=== PATIENT | female | born 1970 | race Asian ===

== ENCOUNTER 2021-03-11 07:29 | Emergency (ER) | payer OTHER ==
[~2021-03-11] VITALS: Ht 160 cm; Wt 71.2 kg
[2021-03-11 08:00] LABS: PLATELET COUNT 236 K/uL (152-353)
[2021-03-11 08:10] LABS: POTASSIUM 3.8 mmol/L (3.6-5.2); SODIUM 128 mmol/L (136-145)
[2021-03-11 08:18] LABS: PARTIAL THROMBOPLASTIN TIME 27.9 SECONDS (24.5-33.6)
[2021-03-11 11:30] VITALS: BP 128/89; TEMP 98
== END 2021-03-11 11:30 | disposition home or self-care (01) ==
LOC: ED 07:29
PROVIDERS: Hospitalist
DX: R07.89 Other chest pain (principal); K29.70 Gastritis, unspecified, without bleeding; F10.10 Alcohol abuse, uncomplicated
CPT/HCPCS: 80053; 81000; 82550; 83690; 83880; 84484; 85027; 85610; 85730; 93005; 96360; 96375; 99284; J3490

== ENCOUNTER 2022-07-12 15:42 | Outpatient (CLI) | payer OTHER | END 2022-07-12 18:55 | disposition home or self-care (01) | LOC: RAD 15:42 | PROVIDERS: ATTEND Nurse Practitioner Family | DX: M25.511 Pain in right shoulder (principal); M25.512 Pain in left shoulder; M25.561 Pain in right knee; M25.562 Pain in left knee ==

== ENCOUNTER 2022-08-27 20:34 | Observation (INO) | payer OTHER ==
[~2022-08-27] VITALS: Ht 162.6 cm; Wt 79.2 kg
[2022-08-27 20:38] VITALS: BP 144/99; TEMP 98.7
[2022-08-27 21:00] VITALS: BP 150/92
[2022-08-27 21:09] LABS: POTASSIUM 4.8 mmol/L (3.6-5.2)
[2022-08-27 21:30] VITALS: BP 170/114
[2022-08-27 21:41] LABS: PLATELET COUNT 894 K/uL (152-353)
[2022-08-27 22:00] VITALS: BP 173/100
[2022-08-27 22:30] VITALS: BP 166/95
[2022-08-27 22:32] LABS: PARTIAL THROMBOPLASTIN TIME 28.3 SECONDS (24.5-33.6)
[2022-08-27 23:00] VITALS: BP 175/109
[2022-08-28] VITALS (12 sets, daily range): BP systolic 103–178; BP diastolic 64–105; TEMP 97.8–99.1; Ht 162.6 cm; Wt 79.2 kg
[2022-08-28 05:11] LABS: PLATELET COUNT 841 K/uL (152-353)
[2022-08-28 05:30] LABS: POTASSIUM 3.9 mmol/L (3.6-5.2)
[2022-08-28] MEDS ORDERED: EZET10TA13 PO (09:18)
[2022-08-28] MEDS ORDERED: CITA20TA2 PO (09:19)
[2022-08-28] MEDS ORDERED: FOLI1TAB26 PO (09:20)
[2022-08-28] MEDS ORDERED: AMIT25TA22 PO (09:20)
[2022-08-28] MEDS ORDERED: DICL50TA PO (09:21)
[2022-08-28] MEDS ORDERED: TRICOR145 M1 PO (09:22)
[2022-08-28] MEDS ORDERED: CRESTOR20 MG PO (09:23)
[2022-08-28] MEDS ORDERED: THIA100T8 PO (09:24)
[2022-08-28] MEDS ORDERED: VITAMIN D5000 UNI1 PO (09:40)
[2022-08-28] MEDS ORDERED: GABAPENTIN PO (09:41)
[2022-08-28] MEDS ORDERED: HYDROCHLOROT12.5 M1 PO (09:42)
[2022-08-28] MEDS ORDERED: NALTREXONE50 MG PO (09:43)
[2022-08-29 04:00] VITALS: BP 127/82; TEMP 98.4
[2022-08-29 05:22] LABS: PLATELET COUNT 674 K/uL (152-353)
[2022-08-29 07:02] LABS: POTASSIUM 3.8 mmol/L (3.6-5.2)
[2022-08-29 08:00] VITALS: BP 109/72; TEMP 98.3
[2022-08-29 11:44] VITALS: BP 90/40; TEMP 99.6
[2022-08-29 16:00] VITALS: BP 108/71; TEMP 99.4
[2022-08-29 20:00] VITALS: BP 95/55; TEMP 99
[2022-08-30] VITALS: BP 101/63; TEMP 98.7
[2022-08-30 04:00] VITALS: BP 128/80; TEMP 98.4
[2022-08-30 05:19] LABS: PLATELET COUNT 662 K/uL (152-353)
[2022-08-30 05:33] LABS: POTASSIUM 3.6 mmol/L (3.6-5.2)
[2022-08-30 08:00] VITALS: BP 148/92; TEMP 98.9
[2022-08-30 12:00] VITALS: BP 139/89; TEMP 98.5
== END 2022-08-30 17:00 | disposition home or self-care (01) ==
LOC: ED 20:34 → MED/SURG 08-28 03:00
PROVIDERS: ADMIT Emergency Medicine; ATTEND Internal Medicine
DX: M62.82 Rhabdomyolysis (principal); K52.89 Other specified noninfective gastroenteritis and colitis; M79.7 Fibromyalgia
CPT/HCPCS: 36415; 80053; 80307; 81000; 82550; 83735; 84484; 85027; 85610; 85730; 87635; 93005; 96360; 96361; 96365; 96366; 96367; 96372; 96374; 96375; 96376; 99220; 99284; G0378; J0744; J1170; J1650; J1885; J2270; J2405; J3490; U0003

== ENCOUNTER 2023-06-07 08:30 | Outpatient (CLI) | payer OTHER ==
[~2023-06-07 08:30] MED LIST: AMIT25TA22 PO; CITA20TA2 PO; CRESTOR20 MG PO; DICL50TA PO; EZET10TA13 PO; FOLI1TAB26 PO; GABAPENTIN PO; HYDROCHLOROT12.5 M1 PO; NALTREXONE50 MG PO; THIA100T8 PO; TRICOR145 M1 PO; VITAMIN D5000 UNI1 PO
== END 2023-06-07 18:55 | disposition home or self-care (01) ==
LOC: MAMMO 08:30
PROVIDERS: ATTEND Nurse Practitioner Family
DX: R92.8 Other abnormal and inconclusive findings on diagnostic imaging of breast (principal)
CPT/HCPCS: G0279